=== PATIENT | female | born 1980 | race Caucasian/White ===

== ENCOUNTER → 2016-11-30 | Outpatient (CLI) | payer OTHER ==
[2016-04-22 11:45] VITALS: BP 113/69
--- NOTE | 2016-11-30 20:29 | RAD ---
Exam performed: CT scan of the head without contrast. Date of Service: 11/30/2016. Comparison: None available. Clinical History: Injury today with laceration on the top of the head with 8 stitches, patient is complaining of headache. Technique: Helical acquisitions are obtained from the foramen magnum to the vertex without intravenous administration of contrast. Findings: The ventricles are midline without evidence of dilatation. Normal freeman-white differentiation is maintained. There is no extra axial fluid collection, intraparenchymal hemorrhage or mass lesion. The visualized portions of the orbits, paranasal sinuses and the mastoid air cells appear clear. The calvarium is intact. Impression: 1. No acute intracranial process detected. PQRS Compliance Statement: One or more of the following individualized dose reduction techniques were utilized for this examination: 1. Automated exposure control 2. Adjustment of the mA and/or kV according to patient size 3. Use of iterative reconstruction technique Electronically signed by: Lety Saba MD (11/30/2016 8:26 PM) [id number]
== END | disposition home or self-care (01) ==
LOC: RAD 19:50
PROVIDERS: ATTEND Preventive Medicine Occupational Medicine
DX: S01.90XA Unspecified open wound of unspecified part of head, initial encounter (principal); X58.XXXA Exposure to other specified factors, initial encounter; Y93.89 Activity, other specified; Y92.89 Other specified places as the place of occurrence of the external cause; Y99.8 Other external cause status
CPT/HCPCS: 70450